=== PATIENT | male | born 1970 | race American Indian/Alaskan Native ===

== ENCOUNTER 2018-10-08 10:21 | Emergency (ER) | payer BC ==
[2018-10-08 11:54] VITALS: BP 124/88; PULSE 81; RESP 16; TEMP 97.8; O2SAT 98
--- NOTE | 2018-10-08 12:22 | ED PDOC ---
Arrival/HPI - General Chief Complaint: Upper Extremity Problem/Injury Time Seen by Provider: 10/08/18 10:25 Historian: Patient - History of Present Illness Narrative History of Present Illness (Text): 10/08/18 12:18 48yr old male with hx of left labrum tear presents today with worsening shoulder pain for the past week. Patient states he has a history of a labrum tear that was not repaired. Patient states he has been having increasing pain over the last week and today while moving arrange at work he ended up developing severe pain along the anterior and lateral shoulder. No medications have been taken for pain at home. Patient states over the past week he has been taking Motrin with some improvement. Patient denies numbness weakness or tingling in the extremity. Patient is complaining of pain with range of motion of the shoulder. No chest pain or shortness of breath. No fevers or chills. No dizziness or weakness. Patient denies back pain. Past Medical History - Provider Review Nursing Documentation Reviewed: Yes - Travel History Have you recently traveled outside [place] w/in the past 3 mons?: No - Psychiatric Hx Substance Use: No - Surgical History Other/Comment: back sx - Anesthesia Hx Anesthesia: Yes Hx Anesthesia Reactions: No Hx Malignant Hyperthermia: No Family/Social History - Physician Review Nursing Documentation Reviewed: Yes Family/Social History: Unknown Family HX Smoking Status: Never Smoked Hx Alcohol Use: Yes Frequency of alcohol use: Socially Hx Substance Use: No Allergies/Home Meds Allergies/Adverse Reactions: Allergies shellfish derived Allergy (Verified 10/08/18 10:49) ANAPHYLAXIS Review of Systems - Review of Systems Constitutional: absent: Fatigue, Fevers Respiratory: absent: SOB, Cough Cardiovascular: absent: Chest Pain, Palpitations Gastrointestinal: absent: Abdominal Pain, Constipation, Diarrhea, Nausea, Vomiting Musculoskeletal: Arthralgias. absent: Back Pain, Neck Pain Skin: absent: Rash, Pruritis Neurological: absent: Headache, Dizziness Psychiatric: absent: Anxiety, Depression Physical Exam Vital Signs Reviewed: Yes Vital Signs Temp Pulse Resp BP Pulse Ox 10/08/18 10:49 97.8 F 81 16 124/88 98 Temperature: Afebrile Blood Pressure: Normal Pulse: Regular Respiratory Rate: Normal Appearance: Positive for: Well-Appearing, Non-Toxic, Comfortable Pain Distress: None Mental Status: Positive for: Alert and Oriented X 3 - Systems Exam Head: Present: Atraumatic Mouth: Present: Moist Mucous Membranes Neck: Present: Normal Range of Motion, Paraspinal Tenderness (+ minimal left sided trapezius tenderness. ). No: MIDLINE TENDERNESS Respiratory/Chest: Present: Clear to Auscultation, Good Air Exchange. No: Respiratory Distress, Accessory Muscle Use Cardiovascular: Present: Regular Rate and Rhythm, Normal S1, S2. No: Murmurs Back: Present: Normal Inspection. No: Midline Tenderness, Paraspinal Tenderness Upper Extremity: Present: Normal ROM, NORMAL PULSES, Tenderness (left shoulder; + ttp over the anterior and lateral aspect of the shoulder; no edema, no erythema; no ecchymosis; full rom of shoulder with pain on abduction. sensation and distal pusles intact. cap refill <2. ), Neurovascularly Intact, Capillary Refill < 2s. No: Swelling, Erythema, Deformity Neurological: Present: GCS=15, Speech Normal Skin: Present: Warm, Dry, Normal Color. No: Rashes Psychiatric: Present: Alert, Oriented x 3 Medical Decision Making ED Course and Treatment: 10/08/18 12:24 patient nontoxic well-appearing in no distress with stable vital signs X-rays of the left shoulder: No fracture Toradol, Flexeril x-rays of the left shoulder: No fracture Patient reassessment: Patient is feeling better after medications. Vital signs are stable. I discussed all results with patient advised to followup with the orthopedist for the next 2 days. Return if symptoms worsen persist or new symptoms develop I advised the patient that although the xrays show no fracture; there is still a possibility for ligamentous or tendon injury the patient must see the orthopedist for further evaluation Patient verbalizes understanding of discharge instructions and need for immediate followup. All aspects of this case were discussed the attending of record. Impression: Shoulder pain Motrin every 6 hours as needed for pain Flexeril 1 tablet every 8 hours as needed for muscle spasms: May cause drowsiness Rest, ice, compression Followup with the orthopedist within the next 2 days Followup with primary care physician within the next 2 days Return if any other concerning symptoms develop - RAD Interpretation Radiology Orders: 10/08/18 11:05 SHOULDER LEFT [RAD] Stat - Medication Orders Current Medication Orders: Discontinued Medications Cyclobenzaprine HCl (Flexeril) 10 mg PO STAT STA Stop: 10/08/18 11:06 Last Admin: 10/08/18 12:12 Dose: 10 mg Ketorolac Tromethamine (Toradol) 60 mg IM STAT STA Stop: 10/08/18 11:06 Last Admin: 10/08/18 12:12 Dose: 60 mg MAR Pain Assessment Document 10/08/18 12:12 (Rec: 10/08/18 12:12 MR [id number]) Pain Reassessment Is this a pain reassessment? Yes Sleep Is patient sleeping during reassessment? No Presence of Pain Presence of Pain Yes Pain Scale Used Protocol: PSCALES Pain Scale Used Numeric Location Left, Right or Bilateral Left Pain Location Body Site Shoulder Description Description Constant Intensity of Pain at present 6 Pain Behavior Facial Grimacing Aggravating Factors ADL's Alleviating Factors/Management Medication Techniques IM Administration Charges Document 10/08/18 12:12 (Rec: 10/08/18 12:12 MR [id number]) Injection Site MAR Injection Site Left Deltoid Charges for Administration # of IM Administrations 1 Disposition/Present on Arrival - Present on Arrival Any Indicators Present on Arrival: No History of DVT/PE: No History of Uncontrolled Diabetes: No Urinary Catheter: No History of Decub. Ulcer: No History Surgical Site Infection Following: None - Disposition Have Diagnosis and Disposition been Completed?: Yes Diagnosis: Shoulder pain Disposition: HOME/ ROUTINE Disposition Time: 12:25 Patient Plan: Discharge Condition: GOOD Discharge Instructions (ExitCare): Shoulder Pain (DC) Additional Instructions: Motrin every 6 hours as needed for pain Flexeril 1 tablet every 8 hours as needed for muscle spasms: May cause drowsiness Rest, ice, compression Followup with the orthopedist within the next 2 days Followup with primary care physician within the next 2 days Return if any other concerning symptoms develop Prescriptions: Cyclobenzaprine [Cyclobenzaprine HCl] 10 mg PO Q8 #10 tab Ibuprofen [Motrin] 600 mg PO Q6H PRN #20 tab PRN Reason: pain/fever reduction Referrals: Kojo Thompson MD [Primary Care Provider] - Follow up with primary Cydney Fried MD [Staff Provider] - Follow up with primary [facility] [Outside] - [facility] with primary [facility] [Outside] - Follow up with primary [facility] [place] [Outside] - Follow up with primary Forms: Couple ([place]), WORK NOTE
--- NOTE | 2018-10-08 13:15 | RAD ---
Date of service: 10/08/2018 PROCEDURE: Radiographs of the Left Shoulder HISTORY: shoulder pain s/p injury COMPARISON: No prior. TECHNIQUE: 3 views obtained. FINDINGS: BONES: Normal. No fracture. JOINTS: Normal. Glenohumeral and acromioclavicular joints preserved. No osteoarthritis. SOFT TISSUES: Normal. OTHER FINDINGS: None. IMPRESSION: Normal radiographs of the left shoulder.
== END 2018-10-08 14:11 | disposition home or self-care (01) ==
LOC: ED 10:21 → MERGE 10:21 → ED 14:11
DX: M25.512 Pain in left shoulder (principal)
CPT/HCPCS: 73030; 96372; 99284; J1885